=== PATIENT | female | born 1955 | race Caucasian/White ===

== ENCOUNTER 2017-03-17 13:52 | Outpatient (CLI) | payer OTHER ==
[2017-03-18] MEDS ORDERED: CAR30 PO (12:07)
[2017-03-18] MEDS ORDERED: GLU500 PO (12:07)
[2017-03-18] MEDS ORDERED: FURO-149 PO (12:07)
[2017-03-18] MEDS ORDERED: BUDE6HFA INH (12:07)
[2017-03-18] MEDS ORDERED: METO25TA3 PO (12:07)
[2017-03-18] MEDS ORDERED: POTA8TAB4 PO (12:07)
[2017-03-18] MEDS ORDERED: BENZ1KIT27 TP (12:07)
[2017-03-18] MEDS ORDERED: PARO-41 PO (12:07)
[2017-03-18] MEDS ORDERED: FLUT1DIS5 INH (12:07)
[2017-03-18] MEDS ORDERED: PRAV40TA PO (12:07)
[2017-03-18] MEDS ORDERED: CLOP75TA2 PO (12:07)
== END 2017-03-17 18:57 | disposition home or self-care (01) ==
LOC: SRD 13:52
PROVIDERS: ATTEND Internal Medicine
DX: I51.7 Cardiomegaly (principal); I25.10 Atherosclerotic heart disease of native coronary artery without angina pectoris; I48.91 Unspecified atrial fibrillation; G47.30 Sleep apnea, unspecified
CPT/HCPCS: 71020-TC

== ENCOUNTER 2017-03-18 11:44 | Inpatient (IN) | payer OTHER ==
[~2017-03-18] VITALS: Ht 154.9 cm; Wt 101.3 kg
[2017-03-18 11:44] VITALS: BP_SYST 119
[2017-03-18] MEDS ORDERED: BENZ1KIT27 TP (12:07)
[2017-03-18] MEDS ORDERED: CLOP75TA2 PO (12:07)
[2017-03-18] MEDS ORDERED: PARO-41 PO (12:07)
[2017-03-18] MEDS ORDERED: GLU500 PO (12:07)
[2017-03-18] MEDS ORDERED: POTA8TAB4 PO (12:07)
[2017-03-18] MEDS ORDERED: FURO-149 PO (12:07)
[2017-03-18] MEDS ORDERED: PRAV40TA PO (12:07)
[2017-03-18] MEDS ORDERED: BUDE6HFA INH (12:07)
[2017-03-18] MEDS ORDERED: FLUT1DIS5 INH (12:07)
[2017-03-18] MEDS ORDERED: CAR30 PO (12:07)
[2017-03-18] MEDS ORDERED: METO25TA3 PO (12:07)
[2017-03-18] MEDS ORDERED: NITROGLYCERIN 1 INCH (GM) OINT. TP ONE (12:15)
[2017-03-18 12:31] LABS: HEMATOCRIT 47.2 % (36-48); HEMOGLOBIN 15.3 g/dL (12.0-16.0); MEAN CORPUSCULAR HEMOGLOBIN 28 pg (27-31); MEAN CORPUSCULAR HGB CONC 32 % (32-36); MEAN CORPUSCULAR VOLUME 87 fL (79.0-98.0); PLATELET COUNT (AUTO) 322 K/uL (130-430); RED CELL DISTRIBUTION WIDTH 13.3 % (9.0-15.0); WHITE BLOOD COUNT (AUTO) 9.8 K/uL (4.8-10.8)
[2017-03-18 12:35] LABS: BILIRUBIN,URINE NEGATIVE (NEGATIVE); BLOOD, URINE TRACE (NEGATIVE); CLARITY/URINE CLEAR (CLEAR); COLOR,URINE YELLOW (YELLOW); GLUCOSE,URINE NEGATIVE (NEGATIVE); KETONES,URINE NEGATIVE (NEGATIVE); LEUKOCYTE ESTERASE ,URINE 1+ (NEGATIVE); NITRITE, URINE NEGATIVE (NEGATIVE); PH,URINE 5.5 (5.0-8.0); PROTEIN URINE 1+ (NEGATIVE); UROBILINOGEN,URINE 0.2 (0.2-1.0)
[2017-03-18 12:36] LABS: CALCIUM 8.4 mg/dL (8.4-11.0); CREATININE 0.81 mg/dL (0.55-1.30); POTASSIUM 3.6 mmol/L (3.5-5.1)
[2017-03-18 12:40] LABS: BACTERIA,URINE FEW /HPF (None Seen); MUCUS,URINE 1+ /LPF (None Seen)
[2017-03-18 12:41] LABS: ALBUMIN 3.7 g/dL (3.4-4.8); TOTAL BILIRUBIN 0.6 mg/dL (0.0-1.0)
[2017-03-18 12:45] LABS: INR 1.1 (0.8-1.2)
[2017-03-18 12:48] LABS: BASOPHILS % (MANUAL) 0 % (0-2); EOSINOPHILS % (MANUAL) 0 % (0-7); LYMPHOCYTES % (MANUAL) 14 % (20-46); MONOCYTES % (MANUAL) 12 % (0-11)
[2017-03-18] MEDS ORDERED: DIGOXIN 0.5 MG/2 ML AMP IVP ONE (13:00)
[2017-03-18] MEDS ORDERED: HEPARIN SODIUM,PORCINE 5000 UNITS/ML VIAL IVP ONE (14:00)
[2017-03-18] MEDS ORDERED: PIPERACILLIN/TAZO 3.375 GM in NS 50 ML IV ONE (14:00)
[2017-03-18] MEDS ORDERED: DILTIAZEM HCL 25 MG/5 ML VIAL IVP ONE (14:00)
[2017-03-18] MEDS ORDERED: PIPERACILLIN/TAZOBACTAM 3.375 GM/VIAL (ZOSYN) IV ONE (14:11)
[2017-03-18 15:11] VITALS: BP_SYST 150
[2017-03-18 16:52] VITALS: BP_SYST 150
[2017-03-18] MEDS ORDERED: ALBUTEROL SULFATE 0.083% 2.5 MG/3 ML VIAL.NEB INH PRN (18:45)
[2017-03-18] MEDS ORDERED: IPRATROPIUM BROM 0.5 MG/2.5 ML VIAL.NEB (ATROVENT) INH PRN (18:45)
[2017-03-18] MEDS ORDERED: DEXTROSE 50% JECT 50 ML DISP.SYRIN IVP PRN (18:45)
[2017-03-18] MEDS ORDERED: MORPHINE 4 MG/ML INJ. SYRINGE IVP PRN (19:00)
[2017-03-18] MEDS ORDERED: MORPHINE 2 MG/ML INJ. SYRINGE IVP PRN (19:00)
[2017-03-18] MEDS ORDERED: ONDANSETRON HCL 4 MG/2 ML VIAL IVP PRN (19:00)
[2017-03-18] MEDS: PIPERACILLIN/TAZOBACTAM 3.375 GM/ D5W 50 ML IV SCH ×2 (19:18)
[2017-03-18] MEDS: D5NS 1,000 ML IV SCH (19:19)
[2017-03-18] MEDS: METOPROLOL TARTRATE 50 MG TABLET PO SCH (19:20)
[2017-03-18 20:00] VITALS: BP_SYST 145; BP_SYST 150
[2017-03-18] MEDS: FLUTICASONE 500 mCg/SALMETEROL 50 mCg DISKUS W.DEV INH SCH (21:00)
[2017-03-18] MEDS ORDERED: METOPROLOL TARTRATE 25 MG TABLET PO SCH (21:00)
[2017-03-18] MEDS: IPRATROPIUM BROM 0.5 MG/2.5 ML VIAL.NEB (ATROVENT) INH SCH (21:22)
[2017-03-18] MEDS: ALBUTEROL SULFATE 0.083% 2.5 MG/3 ML VIAL.NEB INH SCH (21:22)
[2017-03-18] MEDS: APIXABAN 2.5 MG TABLET PO SCH (22:40)
[2017-03-18] MEDS: ATORVASTATIN 20 MG TABLET PO SCH (22:40)
[2017-03-18] MEDS: DILTIAZEM HCL 30 MG TABLET PO SCH (22:40)
[2017-03-18] MEDS: POTASSIUM CHLORIDE 8 MEQ TABLET.SA PO SCH (22:40)
[2017-03-19 00:30] VITALS: BP_SYST 163
[2017-03-19] MEDS: INSULIN REGULAR, HUMAN 100 UNITS/ML, 10 ML VIAL (novoLIN R) SUBCUT PRN ×2 (00:46→12:14)
[2017-03-19] MEDS: PIPERACILLIN/TAZOBACTAM 3.375 GM/ D5W 50 ML IV SCH ×8 (00:46→17:25)
[2017-03-19 04:00] VITALS: BP_SYST 145
[2017-03-19] MEDS: ALBUTEROL SULFATE 0.083% 2.5 MG/3 ML VIAL.NEB INH SCH ×5 (07:35→23:00)
[2017-03-19] MEDS: IPRATROPIUM BROM 0.5 MG/2.5 ML VIAL.NEB (ATROVENT) INH SCH ×5 (07:35→23:00)
[2017-03-19 08:30] VITALS: BP_SYST 128
[2017-03-19] MEDS ORDERED: PRAVASTATIN SODIUM 20 MG TABLET (PRAVACHOL) PO SCH (09:00)
[2017-03-19] MEDS: PARoxetine HCL 20 MG TABLET PO SCH ×2 (09:00→09:51)
[2017-03-19] MEDS: FLUTICASONE 500 mCg/SALMETEROL 50 mCg DISKUS W.DEV INH SCH ×2 (09:00→20:18)
[2017-03-19] MEDS: FUROSEMIDE 40 MG TABLET PO SCH (09:51)
[2017-03-19] MEDS: METOPROLOL TARTRATE 50 MG TABLET PO SCH ×2 (09:52→20:17)
[2017-03-19] MEDS: POTASSIUM CHLORIDE 8 MEQ TABLET.SA PO SCH ×3 (09:52→20:18)
[2017-03-19] MEDS: APIXABAN 2.5 MG TABLET PO SCH ×2 (09:52→20:10)
[2017-03-19] MEDS: DILTIAZEM HCL 30 MG TABLET PO SCH ×2 (09:53→20:17)
[2017-03-19 11:22] VITALS: BP_SYST 111
[2017-03-19] MEDS: D5NS 1,000 ML IV SCH (12:37)
[2017-03-19 15:27] VITALS: BP_SYST 130
[2017-03-19 20:00] VITALS: BP_SYST 145
[2017-03-19] MEDS: ATORVASTATIN 20 MG TABLET PO SCH (20:10)
[2017-03-19] MEDS: ACETAMINOPHEN 325 MG TABLET PO PRN (20:18)
[2017-03-20] VITALS (8 sets, daily range): BP systolic 112–186
[2017-03-20] MEDS: PIPERACILLIN/TAZOBACTAM 3.375 GM/ D5W 50 ML IV SCH ×8 (00:26→17:06)
[2017-03-20] MEDS: ALBUTEROL SULFATE 0.083% 2.5 MG/3 ML VIAL.NEB INH SCH ×4 (03:00→15:00)
[2017-03-20] MEDS: IPRATROPIUM BROM 0.5 MG/2.5 ML VIAL.NEB (ATROVENT) INH SCH ×4 (03:00→15:00)
[2017-03-20] MEDS: D5NS 1,000 ML IV SCH (05:35)
[2017-03-20] MEDS: ACETAMINOPHEN 325 MG TABLET PO PRN (05:37)
[2017-03-20 07:20] LABS: BASOPHILS # (AUTO) 0.1 K/uL (0.0-0.2); BASOPHILS % (AUTO) 0.5 % (0.0-2.0); EOSINOPHILS # (AUTO) 0.2 K/uL (0.0-0.4); EOSINOPHILS % (AUTO) 1.9 % (0.0-4.0); HEMATOCRIT 44.8 % (36-48); HEMOGLOBIN 14.9 g/dL (12.0-16.0); LYMPHOCYTES # (AUTO) 2.3 K/uL (1.0-5.5); LYMPHOCYTES % (AUTO) 21.6 % (20.5-51.5); MEAN CORPUSCULAR HEMOGLOBIN 29 pg (27-31); MEAN CORPUSCULAR HGB CONC 33 % (32-36); MEAN CORPUSCULAR VOLUME 87 fL (79.0-98.0); MONOCYTES # (AUTO) 0.7 K/uL (0.0-1.0); MONOCYTES % (AUTO) 6.6 % (1.7-9.3); NEUTROPHILS # (AUTO) 7.3 K/uL (1.8-7.7); NEUTROPHILS % (AUTO) 69.4 % (40.0-70.0); PLATELET COUNT (AUTO) 332 K/uL (130-430); RED BLOOD CELL COUNT(AUTO) 5.17 MIL/uL (4.2-6.2); RED CELL DISTRIBUTION WIDTH 13.4 % (9.0-15.0); WHITE BLOOD COUNT (AUTO) 10.6 K/uL (4.8-10.8)
[2017-03-20 07:39] LABS: CALCIUM 8.9 mg/dL (8.4-11.0); CREATININE 0.8 mg/dL (0.55-1.30); POTASSIUM 3.5 mmol/L (3.5-5.1)
[2017-03-20 08:02] LABS: ALBUMIN 3.6 g/dL (3.4-4.8); THYROID STIMULATING HORMONE 3.45 uIu/mL (0.36-3.74); TOTAL BILIRUBIN 0.7 mg/dL (0.0-1.0)
[2017-03-20] MEDS: APIXABAN 2.5 MG TABLET PO SCH (08:32)
[2017-03-20] MEDS: DILTIAZEM HCL 30 MG TABLET PO SCH (08:32)
[2017-03-20] MEDS: POTASSIUM CHLORIDE 8 MEQ TABLET.SA PO SCH ×2 (08:32→15:08)
[2017-03-20] MEDS: FUROSEMIDE 40 MG TABLET PO SCH (08:33)
[2017-03-20] MEDS: PARoxetine HCL 20 MG TABLET PO SCH (08:33)
[2017-03-20] MEDS: METOPROLOL TARTRATE 50 MG TABLET PO SCH (08:33)
[2017-03-20] MEDS: FLUTICASONE 500 mCg/SALMETEROL 50 mCg DISKUS W.DEV INH SCH (09:00)
[2017-03-20] MEDS: INSULIN REGULAR, HUMAN 100 UNITS/ML, 10 ML VIAL (novoLIN R) SUBCUT PRN (12:07)
== END 2017-03-20 19:00 | disposition home or self-care (01) | DRG 309 ==
LOC: SED 11:44 → STU 14:24
PROVIDERS: ADMIT Internal Medicine Hospice and Palliative Medicine; ATTEND Internal Medicine Hospice and Palliative Medicine
DX: I48.91 Unspecified atrial fibrillation (principal); Z68.41 Body mass index [BMI] 40.0-44.9, adult; I11.0 Hypertensive heart disease with heart failure; I50.9 Heart failure, unspecified; K43.2 Incisional hernia without obstruction or gangrene; R51 Headache; E11.9 Type 2 diabetes mellitus without complications; E66.9 Obesity, unspecified; K80.20 Calculus of gallbladder without cholecystitis without obstruction; J45.909 Unspecified asthma, uncomplicated; E78.00 Pure hypercholesterolemia, unspecified; K43.9 Ventral hernia without obstruction or gangrene; Z82.49 Family history of ischemic heart disease and other diseases of the circulatory system; Z79.01 Long term (current) use of anticoagulants; Z88.6 Allergy status to analgesic agent; Z86.73 Personal history of transient ischemic attack (TIA), and cerebral infarction without residual deficits; Z79.84 Long term (current) use of oral hypoglycemic drugs; Z79.899 Other long term (current) drug therapy
CPT/HCPCS: 36415; 70450-TC; 71010; 80053; 81000-TC; 82962; 83605; 83690-TC; 83880; 84443-TC; 84484; 85007; 85025; 85027; 85610-TC; 87040-TC; 87086; 93005; 93306; 94640; 94760; 96365; 96375; 99285; J1160; J1644; J2543; J3490; J7042; J7060

== ENCOUNTER 2017-12-22 14:18 | Emergency (ER) | payer OTHER, MEDICAID ==
[~2017-12-22] VITALS: Ht 157.5 cm; Wt 99.8 kg
[~2017-12-22 14:18] MED LIST: APIX5TAB PO; CARV12.548 PO; CLOP75TA2 PO; FLUT1DIS5 INH; FURO-149 PO; LEVO75TA7 PO; LOSA100T3 PO; POTA8TAB4 PO; PRO40 PO; ROSU20TA PO
[2017-12-22 14:24] VITALS: BP_SYST 164
[2017-12-22] MEDS ORDERED: KETOROLAC TROMETHAMINE 60 MG/2 ML VIAL IM ONE (15:00)
[2017-12-22 16:38] VITALS: BP_SYST 153
== END 2017-12-22 16:38 | disposition home or self-care (01) ==
LOC: SED 14:18
DX: S20.212A Contusion of left front wall of thorax, initial encounter (principal); I48.91 Unspecified atrial fibrillation; E11.9 Type 2 diabetes mellitus without complications; I10 Essential (primary) hypertension; Z88.1 Allergy status to other antibiotic agents; Z79.899 Other long term (current) drug therapy; W18.30XA Fall on same level, unspecified, initial encounter; Y93.E9 Activity, other interior property and clothing maintenance; Y92.89 Other specified places as the place of occurrence of the external cause; Y99.8 Other external cause status
CPT/HCPCS: 71250; 96372; 99284; J1885

== ENCOUNTER 2018-03-20 08:30 | Outpatient (CLI) | payer OTHER, MEDICAID | END 2018-03-20 19:48 | disposition home or self-care (01) | LOC: SUS 08:30 | PROVIDERS: ATTEND Internal Medicine | DX: R16.0 Hepatomegaly, not elsewhere classified (principal); Z87.442 Personal history of urinary calculi | CPT/HCPCS: 76700-TC ==

== ENCOUNTER 2018-07-30 20:35 | Emergency (ER) | payer OTHER, MEDICAID ==
[~2018-07-30] VITALS: Ht 157.5 cm; Wt 99.8 kg
[2018-07-30 21:20] VITALS: BP_SYST 140
[2018-07-30 22:55] VITALS: BP_SYST 140
== END 2018-07-30 22:55 | disposition home or self-care (01) ==
LOC: SED 20:35
DX: S80.02XA Contusion of left knee, initial encounter (principal); I48.91 Unspecified atrial fibrillation; I11.0 Hypertensive heart disease with heart failure; I50.9 Heart failure, unspecified; E11.9 Type 2 diabetes mellitus without complications; Z86.73 Personal history of transient ischemic attack (TIA), and cerebral infarction without residual deficits; Z88.6 Allergy status to analgesic agent; Z88.8 Allergy status to other drugs, medicaments and biological substances; Z79.899 Other long term (current) drug therapy; W10.9XXA Fall (on) (from) unspecified stairs and steps, initial encounter; Y93.01 Activity, walking, marching and hiking; Y92.89 Other specified places as the place of occurrence of the external cause; Y99.8 Other external cause status
CPT/HCPCS: 73564; 99283

== ENCOUNTER 2018-07-31 22:41 | Emergency (ER) | payer OTHER, MEDICAID ==
[~2018-07-31] VITALS: Ht 157.5 cm; Wt 99.8 kg
[2018-07-31 22:45] VITALS: BP_SYST 150
[2018-08-01] MEDS ORDERED: ACETAMINOPHEN/CODEINE 300 MG-30 MG TABLET PO ONE (01:45)
[2018-08-01 02:45] VITALS: BP_SYST 141
== END 2018-08-01 02:45 | disposition home or self-care (01) ==
LOC: SED 22:41
DX: S80.02XA Contusion of left knee, initial encounter (principal); J45.909 Unspecified asthma, uncomplicated; I48.91 Unspecified atrial fibrillation; E11.9 Type 2 diabetes mellitus without complications; I11.0 Hypertensive heart disease with heart failure; I50.9 Heart failure, unspecified; Z90.49 Acquired absence of other specified parts of digestive tract; Z86.73 Personal history of transient ischemic attack (TIA), and cerebral infarction without residual deficits; Z88.6 Allergy status to analgesic agent; Z88.8 Allergy status to other drugs, medicaments and biological substances; Z79.899 Other long term (current) drug therapy; W19.XXXA Unspecified fall, initial encounter; Y93.89 Activity, other specified; Y92.89 Other specified places as the place of occurrence of the external cause; Y99.8 Other external cause status
CPT/HCPCS: 93971; 99284

== ENCOUNTER 2018-08-11 12:47 | Outpatient (CLI) | payer OTHER, MEDICAID | END 2018-08-11 21:17 | disposition home or self-care (01) | LOC: SRD 12:47 | PROVIDERS: ATTEND Internal Medicine | DX: M79.672 Pain in left foot (principal); M25.562 Pain in left knee | CPT/HCPCS: 73564 ==

== ENCOUNTER 2018-08-21 13:31 | Emergency (ER) | payer OTHER, MEDICAID ==
[~2018-08-21] VITALS: Ht 165.1 cm; Wt 99.8 kg
--- NOTE | 2018-08-21 13:33 | NUR ---
Arrived via [facility]. Placed in room 7 . Placed on electronic device monitor, blood pressure machine and pulse oximeter. To gown for exam. Side rails up. Report given to Aliyah UP.
--- NOTE | 2018-08-21 13:35 | NUR ---
ER Dr. BROOKS at bedside examining patient.
--- NOTE | 2018-08-21 13:38 | NUR ---
PATIENT CAME IN FROM DR APPOINTMENT. PATIENT COMPLAINING OF CHEST PAIN RADIATING TO LEFT ARM AND NUMBNESS IN ARM SINCE TUESDAY. PAIN 08/09. PATIENT SOB. PATIENT ALERT AND ORIENTED X4. PATIENT NOT COMPLAINING OF NAUSEA OR VOMITING.
[2018-08-21 13:42] VITALS: BP_SYST 138
[2018-08-21] MEDS ORDERED: NACL 0.9% 1,000 ML IV ONE (13:48)
[2018-08-21] MEDS ORDERED: MORPHINE 4 MG/ML INJ. SYRINGE IVP ONE (14:00)
[2018-08-21 14:15] LABS: BASOPHILS # (AUTO) 0.1 K/uL (0.0-0.2); EOSINOPHILS # (AUTO) 0.1 K/uL (0.0-0.4); HEMATOCRIT 38.3 % (36-48); LYMPHOCYTES # (AUTO) 1.3 K/uL (1.0-5.5); LYMPHOCYTES % (AUTO) 15.4 % (20.5-51.5); MEAN CORPUSCULAR HEMOGLOBIN 30 pg (27-31); MEAN CORPUSCULAR HGB CONC 34 % (32-36); MEAN CORPUSCULAR VOLUME 89 fL (79.0-98.0); MONOCYTES # (AUTO) 0.6 K/uL (0.0-1.0); MONOCYTES % (AUTO) 7.2 % (1.7-9.3); NEUTROPHILS # (AUTO) 6.4 K/uL (1.8-7.7); NEUTROPHILS % (AUTO) 75.4 % (40.0-70.0); PLATELET COUNT (AUTO) 338 K/uL (130-430); RED BLOOD CELL COUNT(AUTO) 4.29 MIL/uL (4.2-6.2); RED CELL DISTRIBUTION WIDTH 14.1 % (9.0-15.0); WHITE BLOOD COUNT (AUTO) 8.5 K/uL (4.8-10.8)
--- NOTE | 2018-08-21 14:24 | NUR ---
PATIENT REFUSED MORPHINE AT THE MOMENT. PATIENT SAID SHE DIDNT WANT IT UNLESS SHE IS ADMITED. PATIENT ASKED FOR URINE BUT SAID SHE DOESNT HAVE TO GO.
[2018-08-21 14:36] LABS: CALCIUM 9.7 mg/dL (8.4-11.0); CREATININE 0.96 mg/dL (0.55-1.30); POTASSIUM 4.2 mmol/L (3.5-5.1)
[2018-08-21 14:41] LABS: INR 1.1 (0.8-1.2); PROTHROMBIN TIME 10.8 SECS (9.5-12.5)
[2018-08-21 14:42] LABS: ALBUMIN 3.5 g/dL (3.4-4.8); TOTAL BILIRUBIN 0.4 mg/dL (0.0-1.0)
[2018-08-21 14:54] LABS: BLOOD, URINE NEGATIVE (NEGATIVE); CLARITY/URINE SL CLOUDY (CLEAR); COLOR,URINE AMBER (YELLOW); GLUCOSE,URINE NEGATIVE (NEGATIVE); KETONES,URINE 1+ (NEGATIVE); LEUKOCYTE ESTERASE ,URINE 1+ (NEGATIVE); NITRITE, URINE NEGATIVE (NEGATIVE); PH,URINE 5.5 (5.0-8.0); PROTEIN URINE 2+ (NEGATIVE)
[2018-08-21 15:02] LABS: BILIRUBIN,URINE 1+ (NEGATIVE)
[2018-08-21 15:13] LABS: BACTERIA,URINE MODERATE /HPF (None Seen); MUCUS,URINE 1+ /LPF (None Seen); RBC,URINE 0-3 /HPF (0-3)
[2018-08-21 15:15] LABS: FINE GRANULAR CASTS,URINE 0-10 /LPF (None Seen)
--- NOTE | 2018-08-21 16:58 | NUR ---
Patient given written and verbal discharge instructions and verbalizes understanding. ER MD discussed with patient the results and treatment provided. Patient in stable condition. ID arm band removed. IV catheter removed intact and dressing applied, no active bleeding. Rx of KEFLEX given. Patient educated on pain management and to follow up with PMD. Pain Scale 3/10 TOLERABLE. Opportunity for questions provided and answered. Medication side effect fact sheet provided.
[2018-08-21 17:00] VITALS: BP_SYST 136
== END 2018-08-21 16:58 | disposition home or self-care (01) ==
LOC: SED 13:31
DX: R07.89 Other chest pain (principal); M54.2 Cervicalgia; N39.0 Urinary tract infection, site not specified; I48.91 Unspecified atrial fibrillation; E11.9 Type 2 diabetes mellitus without complications; I11.0 Hypertensive heart disease with heart failure; I50.9 Heart failure, unspecified; Z87.39 Personal history of other diseases of the musculoskeletal system and connective tissue; Z90.49 Acquired absence of other specified parts of digestive tract; Z98.51 Tubal ligation status; Z88.6 Allergy status to analgesic agent; Z88.8 Allergy status to other drugs, medicaments and biological substances; Z79.899 Other long term (current) drug therapy
CPT/HCPCS: 36415; 71045; 80053; 81000; 82150; 82550; 83605; 83690; 83880; 84484; 85025; 85610; 85730; 87040; 87086; 87186; 93005; 99284; J7030; J2270

== ENCOUNTER 2018-12-07 13:59 | Outpatient (CLI) | payer OTHER, MEDICAID | END 2018-12-07 21:09 | disposition home or self-care (01) | LOC: SUS 13:59 | PROVIDERS: ATTEND Internal Medicine | DX: I82.4Z1 Acute embolism and thrombosis of unspecified deep veins of right distal lower extremity (principal) | CPT/HCPCS: 93971 ==

== ENCOUNTER 2019-01-10 12:27 | Inpatient (IN) | payer OTHER, MEDICAID ==
[~2019-01-10] VITALS: Ht 157.5 cm; Wt 99.8 kg
[2019-01-10 12:27] VITALS: BP_SYST 155
--- NOTE | 2019-01-10 12:27 | NUR ---
BROUGHT IN BY [facility], PLACED IN BED #4 AND TRIAGED. REPORT GIVEN TO JIMMY
--- NOTE | 2019-01-10 12:35 | NUR ---
ER Dr. AVILA at bedside examining patient.
--- NOTE | 2019-01-10 12:40 | NUR ---
PATIENT CAME IN COMPLAINING OF "A FIB" THAT STARTED THIS MORNING WELL PALPITATIONS. PATIENT STATES HER BP WAS "190/30." PATIENT COMPLAINING OF JAW PAIN AND HEADACHE. PATIENT COMPLAINING OF RIGHT ARM TINGLINING THAT RADIATED TO FOOT. PATIENT STATES SHE IS STILL ON PERIOD AND HAS IRREGULAR PERIOD AND USUALLY GETS LIKE THIS AROUND HER PERIOD. PATIENT STATES SHE FINISHED YESTERDAY. PATIENT COMPLAINING OF SOB AND NAUSEA BUT DENIES VOMITING. PATIENT ALERT AND ORIENTED X4.
--- NOTE | 2019-01-10 12:50 | NUR ---
PATIENT LEAVING NOW TO RADIOLOGY VIA GURNEY IN STABLE CONDITION.
--- NOTE | 2019-01-10 13:16 | NUR ---
PATIENT BACK FROM RADIOLOGY IN STABLE CONDITION.
[2019-01-10 13:34] LABS: BILIRUBIN,URINE NEGATIVE (NEGATIVE); CLARITY/URINE CLEAR (CLEAR); COLOR,URINE YELLOW (YELLOW); GLUCOSE,URINE 2+ (NEGATIVE); KETONES,URINE NEGATIVE (NEGATIVE); LEUKOCYTE ESTERASE ,URINE TRACE (NEGATIVE); NITRITE, URINE NEGATIVE (NEGATIVE); PH,URINE 7.5 (5.0-8.0); PROTEIN URINE 1+ (NEGATIVE); UROBILINOGEN,URINE 0.2 (0.2-1.0)
[2019-01-10 13:36] LABS: BLOOD, URINE TRACE (NEGATIVE)
[2019-01-10 13:40] LABS: BASOPHILS # (AUTO) 0.1 K/uL (0.0-0.2); BASOPHILS % (AUTO) 0.9 % (0.0-2.0); EOSINOPHILS # (AUTO) 0.1 K/uL (0.0-0.4); EOSINOPHILS % (AUTO) 1.1 % (0.0-4.0); HEMATOCRIT 44.7 % (36-48); HEMOGLOBIN 15.1 g/dL (12.0-16.0); LYMPHOCYTES # (AUTO) 1.5 K/uL (1.0-5.5); LYMPHOCYTES % (AUTO) 19.3 % (20.5-51.5); MEAN CORPUSCULAR HEMOGLOBIN 29 pg (27-31); MEAN CORPUSCULAR HGB CONC 34 % (32-36); MEAN CORPUSCULAR VOLUME 86 fL (79.0-98.0); MONOCYTES # (AUTO) 0.6 K/uL (0.0-1.0); MONOCYTES % (AUTO) 7.2 % (1.7-9.3); NEUTROPHILS # (AUTO) 5.7 K/uL (1.8-7.7); NEUTROPHILS % (AUTO) 71.5 % (40.0-70.0); PLATELET COUNT (AUTO) 297 K/uL (130-430); RED BLOOD CELL COUNT(AUTO) 5.18 MIL/uL (4.2-6.2); RED CELL DISTRIBUTION WIDTH 14.4 % (9.0-15.0)
[2019-01-10] MEDS ORDERED: DILTIAZEM HCL 125 MG in D5W 100 ML IV ONE (13:45)
[2019-01-10] MEDS ORDERED: DILTIAZEM HCL 25 MG/5 ML VIAL IVP ONE (13:45)
[2019-01-10 13:46] LABS: BACTERIA,URINE FEW /HPF (None Seen); MUCUS,URINE 1+ /LPF (None Seen)
[2019-01-10 13:50] LABS: BARBITURATE, URINE NEGATIVE (NEG <=200); BENZODIAZEPINE, URINE NEGATIVE (NEG <=150); CANNABINOID, URINE NEGATIVE (NEG <=50); COCAINE, URINE NEGATIVE (NEG <=150); METHAMPHETAMINES SCREEN,URINE NEGATIVE (NEG <=500); OPIATE, URINE NEGATIVE (NEG <=100); PHENCYCLIDINE SCREEN,URINE NEGATIVE (NEG <=25); UR TRICYCLIC ANTIDEPRESSANTS NEGATIVE (NEG <=300); URINE AMPHETAMINE NEGATIVE (NEG <=500); URINE METHADONE NEGATIVE (NEG <=200); URINE OXYCODONE SCREEN NEGATIVE (NEG <=100); URINE PROPOXYPHENE SCREEN NEGATIVE (NEG <=300)
[2019-01-10 14:04] LABS: ANION GAP 9 (5-15); CALCIUM 8.6 mg/dL (8.4-11.0); CHLORIDE 106 mmol/L (98-107); CREATININE 0.78 mg/dL (0.55-1.30); GLUCOSE 247 mg/dL (70-99); POTASSIUM 3.7 mmol/L (3.5-5.1); SODIUM SERUM 144 mmol/L (136-145); UREA NITROGEN, BLOOD 8 mg/dL (8-21)
[2019-01-10 14:05] LABS: GFR AFRICAN AMERICAN 95 mL/min (>90)
[2019-01-10] MEDS ORDERED: DILTIAZEM HCL 125 MG/25 ML VIAL IV ONE (14:06)
[2019-01-10 14:14] LABS: ALANINE AMINOTRANSFERASE 19 U/L (12-78); ALBUMIN 3.8 g/dL (3.4-4.8); ASPARTATE AMINOTRANSFERASE 16 U/L (10-37); TOTAL BILIRUBIN 0.4 mg/dL (0.0-1.0)
[2019-01-10 14:15] LABS: ALCOHOL, BLOOD < 3 mg/dL (<10)
[2019-01-10 14:17] LABS: INR 1.1 (0.8-1.2); PROTHROMBIN TIME 10.6 SECS (9.5-12.5)
--- NOTE | 2019-01-10 14:25 | NUR ---
CARDIZEM DRIP STARTED. BP 145/86 HR 136. WILL CONTINUE TO MONITOR.
--- NOTE | 2019-01-10 14:26 | NUR ---
SPOKE TO PATIENT ABOUT END OF LIFE CARE. PATIENT STATES SHE IS FULL CODE.
--- NOTE | 2019-01-10 14:33 | NUR ---
PATIENT'S HR DROPPED TO 40'S BUT BACK TO 130'S. PATIENT ALSO COMPLAINING OF NECK PAIN WHEN HAPPENED. CARDIZEM STOPPED. DR AVILA AWARE AND SAID TO HOLD FOR NOW. NECK PAIN RESOLVED AFTER STOPPED.
--- NOTE | 2019-01-10 14:36 | NUR ---
Medication reconciliation completed with information provided by PATIENT. Any prior medication reconciliation on file was reviewed and corrected.
--- NOTE | 2019-01-10 14:38 | NUR ---
PATIENT'S HR 120 BP 129/74. DR AVILA SAID TO START DRIP AGAIN BUT SLOW DOWN TO 5MG/HR.
--- NOTE | 2019-01-10 14:48 | NUR ---
PATIENT TOLERATING CARDIZEM DRIP AT 5MG/HR. NO SIGNS OF DISTRESS. HR STILL JUMPING FROM 40'S TO 130'S. DR MARGARITA DAVISON.
[2019-01-10] MEDS ORDERED: cefTRIAXone 1 GM IVPB PREMIX 50 ML IV ONE (15:00)
--- NOTE | 2019-01-10 15:00 | NUR ---
Patient will be admitted to care of DR SHELDON. Admitted to TELE unit. Belongings list completed. Summary report printed. Report will be given at bedside.
--- NOTE | 2019-01-10 15:14 | NUR ---
# 20 gauge angiocath placed to RIGHT AC. Use of asceptic technique. Opsite placed over site. Blood return noted. Flushed with 10 cc of normal saline. No evidence of infiltration noted. Patient tolerated well.
--- NOTE | 2019-01-10 15:31 | NUR ---
TELE NOT WANTING TO ADMIT PATIENT BECAUSE OF CARDIZEM DRIP. WILL CLARIFIY WITH CHARGE AND MANAGER TRANSITION.
--- NOTE | 2019-01-10 16:58 | NUR ---
Transfer to TELE via [facility] protocol. Licensed nurse present. IV present no signs or symptoms of infiltration.
--- NOTE | 2019-01-10 17:06 | NUR ---
ADMISSION NOTE Received patient from ER via nina, received report from JIMMY UP. Patient admitted with diagnosis of Afib. Patient oriented to hospital routine, call light, toileting and safety-patient verbalized understanding.Put to telemetry,afib.On cardizem drip at 5mg/hour at left arm for Afib.
--- NOTE | 2019-01-10 17:10 | NUR ---
REPORT GIVEN TO KALYN UP ON TELE.
--- NOTE | 2019-01-10 17:10 | NUR ---
CONSULTATION PAGED REASON FOR CONSULTATION:A-FIB WAS CONSULT CALLED?Y PERSON WHO WAS NOTIFIED:JOE CONSULTING PHYSICIAN:FERMIN THOMPSON ORGANIC SEARCH LEAD SPECIALTY:CARDIO ORGANIC SEARCH LEAD PHONE NUMBER:[phone] ORDERING PHYSICIAN:KOMAL COLUNGA
[2019-01-10 17:14] VITALS: BP_SYST 167
[2019-01-10] MEDS ORDERED: DILTIAZEM HCL 125 MG in D5W 100 ML IV SCH (17:15)
[2019-01-10 18:01] VITALS: BP_SYST 167
--- NOTE | 2019-01-10 19:08 | NUR ---
END RN NOTES WILL ENDORSE PATIENT TO NEXT SHIFT CONT MEDS AND CARDIZEM DRIP OF 5 CC/HR , PER CHIEF PHARMACIST TO CONT CARDIZEM DRIP UNLESS ANY UNUSUAL OCCURRENCE TO CALL MD CHANCE AND HE WILL SEE THE PATIENT , NO CHEST PAIN SHE FEELS BETTER AND EXPLAINED PLAN OF CARE AND SAFETY ENSURED ,SHE IS BPR AND ON STEADY GAIT
--- NOTE | 2019-01-10 19:35 | NUR ---
ROUNDS PATIENT AWAKE, WATCHING TV, NOT IN DISTRESS, DENIES ANY PAIN AND DISCOMFORT AT THIS TIME. ASSESSMENT DONE AND DOCUMENTED. SEE FLOWSHEET. PATIENT ON CARDIZEM DRIP AT THIS TIME @ 5 ML/HR, INFUSING WELL. NEEDS ATTENDED TO. SAFETY AND FALL PRECAUTION MEASURES IN PLACED. BED IN LOW AND LOCKED POSITION. CALL LIGHT PLACED WITHIN REACH.
[2019-01-10 20:00] VITALS: BP_SYST 135
[2019-01-10] MEDS: APIXABAN 2.5 MG TABLET PO SCH (20:51)
[2019-01-10] MEDS: CARVEDILOL 6.25 MG TABLET (COREG) PO SCH (20:52)
--- NOTE | 2019-01-10 21:15 | NUR ---
MEDICATION DUE MEDICATIONS GIVEN SCHEDULED, TOLERATED WELL. WILL CONTINUE TO MONITOR.
--- NOTE | 2019-01-11 00:14 | NUR ---
PATIENT RESTING: Patient resting quietly. No acute distress noted. Vital signs within normal range.
[2019-01-11 00:46] VITALS: BP_SYST 137
--- NOTE | 2019-01-11 02:13 | NUR ---
ROUNDS PATIENT ASLEEP, RESPIRATIONS EVEN AND UNLABORED, NO SIGNS OF ANY PAIN AND DISCOMFORT NOTED. WILL CONTINUE TO MONITOR.
--- NOTE | 2019-01-11 04:02 | NUR ---
NOTES PATIENT AWAKE, ASSISTED HER TO THE BATHROOM, NO COMPLAINTS AT THIS TIME. WILL CONTINUE TO MONITOR.
--- NOTE | 2019-01-11 06:16 | NUR ---
ISAURA NOTES PATIENT AWAKE, VITALS STABLE, NO COMPLAINTS AT THIS TIME. ALL NEEDS ATTENDED TO. SAFETY AND FALL PRECAUTION MEASURES MAINTAINED. CALL LIGHT PLACED WITHIN REACH.
[2019-01-11 08:00] VITALS: BP_SYST 151
[2019-01-11] MEDS ORDERED: ACETAMINOPHEN 500 MG TABLET PO PRN (08:00)
--- NOTE | 2019-01-11 08:00 | NUR ---
initial notes rec patient awake alert at the edge of the bed eating breakfast. ivf infusing well on the l ac. no infilatration noted. bed to the lowest position and side rails up and locked. call light within reached and knows when to call for assistance. assisted to the br with min assists and lizzie well.
[2019-01-11] MEDS: CARVEDILOL 6.25 MG TABLET (COREG) PO SCH (08:17)
[2019-01-11] MEDS: APIXABAN 2.5 MG TABLET PO SCH (08:22)
[2019-01-11] MEDS ORDERED: FUROSEMIDE 40 MG TABLET PO SCH (09:00)
[2019-01-11] MEDS ORDERED: ROSUVASTATIN CALCIUM 5 MG/TAB (CRESTOR) PO SCH (09:00)
[2019-01-11] MEDS ORDERED: ATORVASTATIN 20 MG TABLET PO SCH (09:00)
[2019-01-11] MEDS ORDERED: DIATR MEGLU/DIATRIZ SOD 30 ML SOLUTION PO ONE (09:58)
--- NOTE | 2019-01-11 10:00 | NUR ---
rounds seen by dr christianson at bedside. no sob noted. call light within reached.
[2019-01-11 12:41] VITALS: BP_SYST 145
[2019-01-11] MEDS ORDERED: AMI200 PO (13:32)
--- NOTE | 2019-01-11 14:35 | NUR ---
Dietitian Recommendations * Recommend CCHO, cardiac, mechanical soft, finely chopped diet LP, RD Please refer to Nutrition Assessment for details. Addendum: 01/11/19 at [address] Amended: Links added.
[2019-01-11 15:01] VITALS: BP_SYST 145
== END 2019-01-11 16:25 | disposition home or self-care (01) | DRG 309 ==
LOC: SED 12:27 → STU 14:53
PROVIDERS: ADMIT Internal Medicine Hospice and Palliative Medicine; ATTEND Internal Medicine Hospice and Palliative Medicine
DX: I48.0 Paroxysmal atrial fibrillation (principal); Z68.41 Body mass index [BMI] 40.0-44.9, adult; E78.5 Hyperlipidemia, unspecified; I25.10 Atherosclerotic heart disease of native coronary artery without angina pectoris; E78.00 Pure hypercholesterolemia, unspecified; I11.0 Hypertensive heart disease with heart failure; I50.9 Heart failure, unspecified; E66.01 Morbid (severe) obesity due to excess calories; Z88.8 Allergy status to other drugs, medicaments and biological substances; Z88.6 Allergy status to analgesic agent; Z79.01 Long term (current) use of anticoagulants; Z79.02 Long term (current) use of antithrombotics/antiplatelets; Z82.49 Family history of ischemic heart disease and other diseases of the circulatory system; Z95.5 Presence of coronary angioplasty implant and graft; Z86.73 Personal history of transient ischemic attack (TIA), and cerebral infarction without residual deficits; Z98.51 Tubal ligation status; Z91.048 Other nonmedicinal substance allergy status
CPT/HCPCS: 36415; 70450-TC; 71045; 74018; 80053; 80307; 81000-TC; 82140-TC; 83605; 83880; 84439; 84484; 85025; 85610-TC; 87040-TC; 87086; 93005; 96365; 96366; 96367; 99285; G0378; G0482; J0696; J3490; J7060; Q9964

== ENCOUNTER 2019-01-25 17:49 | Emergency (ER) | payer OTHER, MEDICAID ==
[~2019-01-25] VITALS: Ht 157.5 cm; Wt 99.8 kg
[~2019-01-25 17:49] MED LIST changes: +AMI200 PO; -LEVO75TA7 PO; -PRO40 PO; -ROSU20TA PO; +ROSU20TA2 PO
[2019-01-25 17:55] VITALS: BP_SYST 149
[2019-01-25 18:39] LABS: BASOPHILS # (AUTO) 0.1 K/uL (0.0-0.2); BASOPHILS % (AUTO) 0.9 % (0.0-2.0); EOSINOPHILS # (AUTO) 0.1 K/uL (0.0-0.4); EOSINOPHILS % (AUTO) 1.3 % (0.0-4.0); HEMATOCRIT 39.7 % (36-48); HEMOGLOBIN 13.5 g/dL (12.0-16.0); LYMPHOCYTES # (AUTO) 2.2 K/uL (1.0-5.5); LYMPHOCYTES % (AUTO) 22.5 % (20.5-51.5); MEAN CORPUSCULAR HEMOGLOBIN 29 pg (27-31); MEAN CORPUSCULAR HGB CONC 34 % (32-36); MEAN CORPUSCULAR VOLUME 86 fL (79.0-98.0); MONOCYTES # (AUTO) 0.7 K/uL (0.0-1.0); MONOCYTES % (AUTO) 7.4 % (1.7-9.3); NEUTROPHILS # (AUTO) 6.5 K/uL (1.8-7.7); NEUTROPHILS % (AUTO) 67.9 % (40.0-70.0); PLATELET COUNT (AUTO) 287 K/uL (130-430); RED CELL DISTRIBUTION WIDTH 14.1 % (9.0-15.0); WHITE BLOOD COUNT (AUTO) 9.6 K/uL (4.8-10.8)
[2019-01-25 18:45] LABS: CALCIUM 9.2 mg/dL (8.4-11.0); CREATININE 0.82 mg/dL (0.55-1.30); POTASSIUM 3.9 mmol/L (3.5-5.1)
[2019-01-25 18:50] LABS: ALBUMIN 3.5 g/dL (3.4-4.8); TOTAL BILIRUBIN 0.3 mg/dL (0.0-1.0)
[2019-01-25 19:11] VITALS: BP_SYST 149
== END 2019-01-25 19:12 | disposition home or self-care (01) ==
LOC: SED 17:49
DX: I83.92 Asymptomatic varicose veins of left lower extremity (principal); I11.0 Hypertensive heart disease with heart failure; I50.9 Heart failure, unspecified; I48.91 Unspecified atrial fibrillation; E11.9 Type 2 diabetes mellitus without complications; J45.909 Unspecified asthma, uncomplicated; Z88.8 Allergy status to other drugs, medicaments and biological substances; Z88.6 Allergy status to analgesic agent; Z79.899 Other long term (current) drug therapy
CPT/HCPCS: 36415; 80053; 85025; 93971; 99284

== ENCOUNTER 2019-04-02 10:00 | Outpatient (CLI) | payer OTHER | END 2019-04-02 13:00 | disposition home or self-care (01) | LOC: SRD 10:00 → EDSTATUS 04-09 10:20 | PROVIDERS: ATTEND Colon & Rectal Surgery | DX: Z01.818 Encounter for other preprocedural examination (principal); R91.8 Other nonspecific abnormal finding of lung field; I51.7 Cardiomegaly; K43.2 Incisional hernia without obstruction or gangrene; Z79.01 Long term (current) use of anticoagulants; Z86.73 Personal history of transient ischemic attack (TIA), and cerebral infarction without residual deficits; Z79.899 Other long term (current) drug therapy; Z88.6 Allergy status to analgesic agent; Z88.8 Allergy status to other drugs, medicaments and biological substances | CPT/HCPCS: 71046-TC ==

== ENCOUNTER 2020-09-10 16:56 | Emergency (ER) | payer OTHER ==
[~2020-09-10] VITALS: Ht 157.5 cm; Wt 99.8 kg
[~2020-09-10 16:56] MED LIST changes: -AMI200 PO; +AMIO200T66 PO
--- NOTE | 2020-09-10 16:56 | NUR ---
Placed in room 08 . Placed on pick up truck driver, blood pressure machine and pulse oximeter. To gown for exam. Side rails up.
--- NOTE | 2020-09-10 16:58 | NUR ---
Pt brought by self, ambulatory , A&Ox4, pt presents to ER with facial dropping/numbess on L side of face, intact ROM, able to raise eyebrows, intact speech, steady gait, VSS, respirations even and unlabored, will cont to monitor.
--- NOTE | 2020-09-10 16:59 | NUR ---
Dr Llamas evaluating patient at bedside
[2020-09-10 17:01] VITALS: BP_SYST 153
[2020-09-10] MEDS ORDERED: NACL 0.9% 1,000 ML IV ONE (17:30)
[2020-09-10 17:45] LABS: BASOPHILS # (AUTO) 0.1 K/uL (0.0-0.2); EOSINOPHILS # (AUTO) 0.1 K/uL (0.0-0.4); HEMATOCRIT 42.3 % (36-48); HEMOGLOBIN 14.3 g/dL (12.0-16.0); LYMPHOCYTES % (AUTO) 23.3 % (20.5-51.5); MEAN CORPUSCULAR HEMOGLOBIN 30 pg (27-31); MEAN CORPUSCULAR HGB CONC 34 % (32-36); MEAN CORPUSCULAR VOLUME 88 fL (79.0-98.0); MONOCYTES # (AUTO) 0.6 K/uL (0.0-1.0); MONOCYTES % (AUTO) 6.9 % (1.7-9.3); NEUTROPHILS # (AUTO) 5.8 K/uL (1.8-7.7); NEUTROPHILS % (AUTO) 67.8 % (40.0-70.0); PLATELET COUNT (AUTO) 250 K/uL (130-430); RED BLOOD CELL COUNT(AUTO) 4.82 MIL/uL (4.2-6.2); RED CELL DISTRIBUTION WIDTH 13.9 % (9.0-15.0); WHITE BLOOD COUNT (AUTO) 8.5 K/uL (4.8-10.8)
--- NOTE | 2020-09-10 17:50 | NUR ---
Pt off the unit for CT
[2020-09-10 17:58] LABS: CALCIUM 8.6 mg/dL (8.4-11.0); CREATININE 0.8 mg/dL (0.55-1.30); POTASSIUM 4.4 mmol/L (3.5-5.1)
[2020-09-10] MEDS ORDERED: ACETAMINOPHEN 325 MG TABLET PO ONE (18:00)
[2020-09-10 18:04] LABS: PROTHROMBIN TIME 10.5 SECS (9.5-12.5)
[2020-09-10 18:05] LABS: ALBUMIN 3.6 g/dL (3.4-4.8); TOTAL BILIRUBIN 0.7 mg/dL (0.0-1.0)
--- NOTE | 2020-09-10 18:10 | NUR ---
Pt returned from CT on stable condition,
[2020-09-10 18:14] LABS: BILIRUBIN,URINE NEGATIVE (NEGATIVE); CLARITY/URINE CLEAR (CLEAR); COLOR,URINE YELLOW (YELLOW); GLUCOSE,URINE 2+ (NEGATIVE); KETONES,URINE NEGATIVE (NEGATIVE); LEUKOCYTE ESTERASE ,URINE TRACE (NEGATIVE); NITRITE, URINE NEGATIVE (NEGATIVE); PROTEIN URINE TRACE (NEGATIVE); UROBILINOGEN,URINE 0.2 (0.2-1.0)
[2020-09-10 18:20] LABS: BLOOD, URINE TRACE (NEGATIVE)
[2020-09-10 18:26] LABS: RBC,URINE 0-3 /HPF (0-3)
[2020-09-10 18:27] LABS: BACTERIA,URINE MANY /HPF (None Seen); MUCUS,URINE 3+ /LPF (None Seen); YEAST,URINE Many /HPF (None Seen)
--- NOTE | 2020-09-10 19:08 | NUR ---
Minh mari in [facility] - 09/10/20 at 1924 by [email or web address] Received report from JEOVANNY Moreno
--- NOTE | 2020-09-10 19:09 | NUR ---
Pt A&Ox4, VSS, respirations even and unlabored
[2020-09-10] MEDS ORDERED: VALA10002 PO (19:10)
[2020-09-10] MEDS ORDERED: PRED50TA PO (19:10)
[2020-09-10 19:21] VITALS: BP_SYST 141
--- NOTE | 2020-09-10 19:21 | NUR ---
Patient given written and verbal discharge instructions and verbalizes understanding. ER MD discussed with patient the results and treatment provided. Patient in stable condition. ID arm band removed. IV catheter removed intact and dressing applied, no active bleeding. Rx of Prednisone and Valtrex given. Patient educated on pain management and to follow up with PMD. Pain Scale 0/10. Opportunity for questions provided and answered. Medication side effect fact sheet provided.
== END 2020-09-10 19:21 | disposition home or self-care (01) ==
LOC: SED 16:56
DX: G51.0 Bell's palsy (principal); I10 Essential (primary) hypertension; E11.9 Type 2 diabetes mellitus without complications; I48.91 Unspecified atrial fibrillation; J45.909 Unspecified asthma, uncomplicated; Z88.6 Allergy status to analgesic agent; Z88.8 Allergy status to other drugs, medicaments and biological substances; Z79.899 Other long term (current) drug therapy
CPT/HCPCS: 36415; 70450; 71045; 76376; 80053; 81000; 84484; 85025; 85610; 85730; 87086; 93005; 96360; 99285; J7030

== ENCOUNTER 2021-01-29 10:07 | Emergency (ER) | payer OTHER, MEDICAID, SELFPAY ==
[~2021-01-29] VITALS: Ht 157.5 cm; Wt 99.8 kg
[~2021-01-29 10:07] MED LIST changes: -AMIO200T66 PO; +AMIO400T5 PO; +BUDE6.9H INH; +CITA10TA9 PO; -CLOP75TA2 PO; +FLUT1DIS5 IH; -FLUT1DIS5 INH; +NIFE-55 PO
[2021-01-29 10:16] VITALS: BP_SYST 172
[2021-01-29] MEDS ORDERED: cloNIDine HCL 0.1 MG TABLET PO ONE (10:45)
[2021-01-29 11:04] LABS: BASOPHILS # (AUTO) 0.1 K/uL (0.0-0.2); BASOPHILS % (AUTO) 0.8 % (0.0-2.0); EOSINOPHILS # (AUTO) 0.1 K/uL (0.0-0.4); HEMATOCRIT 37.3 % (36-48); HEMOGLOBIN 12.5 g/dL (12.0-16.0); LYMPHOCYTES # (AUTO) 1.2 K/uL (1.0-5.5); LYMPHOCYTES % (AUTO) 13.2 % (20.5-51.5); MEAN CORPUSCULAR HEMOGLOBIN 29 pg (27-31); MEAN CORPUSCULAR HGB CONC 34 % (32-36); MEAN CORPUSCULAR VOLUME 87 fL (79.0-98.0); MONOCYTES # (AUTO) 0.5 K/uL (0.0-1.0); MONOCYTES % (AUTO) 5.7 % (1.7-9.3); NEUTROPHILS # (AUTO) 7.2 K/uL (1.8-7.7); NEUTROPHILS % (AUTO) 79.3 % (40.0-70.0); PLATELET COUNT (AUTO) 258 K/uL (130-430); RED BLOOD CELL COUNT(AUTO) 4.31 MIL/uL (4.2-6.2)
[2021-01-29 11:21] LABS: CALCIUM 8.8 mg/dL (8.4-11.0); CREATININE 0.79 mg/dL (0.55-1.30); POTASSIUM 3.9 mmol/L (3.5-5.1)
[2021-01-29 11:24] LABS: ALBUMIN 3.5 g/dL (3.4-4.8); TOTAL BILIRUBIN 0.7 mg/dL (0.0-1.0)
[2021-01-29] MEDS ORDERED: NIFE-55 PO (12:30)
[2021-01-29] MEDS ORDERED: CARV12.548 PO (12:30)
[2021-01-29 12:47] VITALS: BP_SYST 152
== END 2021-01-29 12:40 | disposition home or self-care (01) ==
LOC: SED 10:07
DX: I16.0 Hypertensive urgency (principal); I48.91 Unspecified atrial fibrillation; E11.9 Type 2 diabetes mellitus without complications; J45.909 Unspecified asthma, uncomplicated; Z88.6 Allergy status to analgesic agent; Z88.8 Allergy status to other drugs, medicaments and biological substances; Z79.899 Other long term (current) drug therapy; Z20.822 Contact with and (suspected) exposure to COVID-19
CPT/HCPCS: 36415; 71045; 80053; 82962; 83880; 84484; 85025; 93005; 99285

== ENCOUNTER 2021-05-21 16:36 | Emergency (ER) | payer OTHER, MEDICAID, SELFPAY ==
[~2021-05-21] VITALS: Ht 157.5 cm; Wt 95.3 kg
[~2021-05-21 16:36] MED LIST changes: +CITA10TA14 PO; -CITA10TA9 PO; -POTA8TAB4 PO; +POTA8TAB66 PO
[2021-05-21 16:50] VITALS: BP_SYST 115
--- NOTE | 2021-05-21 16:50 | NUR ---
Pt. came in with family having multiple flu like symptoms, ROCHA, body aches, low grade fever, mild SOB and back pain X 5 days, pt. started coughing yesterday and now is concerned, pt. is not vaccinated for covid
--- NOTE | 2021-05-21 17:30 | NUR ---
ER in tent examining patient.
--- NOTE | 2021-05-21 18:18 | NUR ---
chest xray being done
[2021-05-21] MEDS ORDERED: PSEU120T57 PO (18:54)
[2021-05-21] MEDS ORDERED: GUAI-723 PO (18:54)
[2021-05-21 19:08] VITALS: BP_SYST 131
--- NOTE | 2021-05-21 19:09 | NUR ---
Patient given written and verbal discharge instructions and verbalizes understanding. ER MD discussed with patient the results and treatment provided. Patient in stable condition. ID arm band removed. Rx of guaifenesin and sudafed given. Patient educated on pain management and to follow up with PMD. Pain Scale 0. Opportunity for questions provided and answered. Medication side effect fact sheet provided.
== END 2021-05-21 19:09 | disposition home or self-care (01) ==
LOC: SED 16:36
DX: U07.1 COVID-19 (principal); J45.909 Unspecified asthma, uncomplicated; E11.9 Type 2 diabetes mellitus without complications; I10 Essential (primary) hypertension; Z88.2 Allergy status to sulfonamides; Z88.8 Allergy status to other drugs, medicaments and biological substances
CPT/HCPCS: 36415; 71045; 93005; 99285

== ENCOUNTER → 2023-01-14 | Emergency (ER) | payer OTHER, MEDICAID ==
[~2023-01-14] VITALS: Ht 157.5 cm; Wt 95.3 kg
[~2023-01-14] MED LIST changes: +GUAI-723 PO; +LOSA-415 PO; -LOSA100T3 PO; +PSEU120T57 PO
[2023-01-14 06:20] VITALS: BP_SYST 155; PULSE 59; RESP 17; TEMP 98.3; O2SAT 97
[2023-01-14 06:47] VITALS: BP_SYST 161; PULSE 56; RESP 18; TEMP 98.3; O2SAT 98
== END | disposition home or self-care (01) ==
LOC: SED 05:51
DX: I10 Essential (primary) hypertension (principal); J45.909 Unspecified asthma, uncomplicated; E11.9 Type 2 diabetes mellitus without complications; Z88.6 Allergy status to analgesic agent; Z88.8 Allergy status to other drugs, medicaments and biological substances; Z79.899 Other long term (current) drug therapy
CPT/HCPCS: 99281; J7030

== ENCOUNTER 2023-03-18 12:05 | Emergency (ER) | payer OTHER, MEDICAID ==
[~2023-03-18] VITALS: Ht 157.5 cm; Wt 95.3 kg
[2023-03-18 12:42] VITALS: BP_SYST 137; PULSE 62; RESP 18; TEMP 97; O2SAT 97
[2023-03-18 13:36] LABS: BASOPHILS # (AUTO) 0.1 K/uL (0.0-0.2); BASOPHILS % (AUTO) 0.8 % (0.0-2.0); EOSINOPHILS # (AUTO) 0.2 K/uL (0.0-0.4); EOSINOPHILS % (AUTO) 1.9 % (0.0-4.0); HEMATOCRIT 44.4 % (36-48); HEMOGLOBIN 14.4 g/dL (12.0-16.0); LYMPHOCYTES # (AUTO) 1.9 K/uL (1.0-5.5); LYMPHOCYTES % (AUTO) 22.3 % (20.5-51.5); MEAN CORPUSCULAR HEMOGLOBIN 29 pg (27-31); MEAN CORPUSCULAR HGB CONC 32 % (32-36); MEAN CORPUSCULAR VOLUME 89 fL (79.0-98.0); MONOCYTES # (AUTO) 0.7 K/uL (0.0-1.0); MONOCYTES % (AUTO) 8.1 % (1.7-9.3); NEUTROPHILS # (AUTO) 5.7 K/uL (1.8-7.7); NEUTROPHILS % (AUTO) 66.9 % (40.0-70.0); PLATELET COUNT (AUTO) 290 K/uL (130-430); RED BLOOD CELL COUNT(AUTO) 5.01 MIL/uL (4.2-6.2); RED CELL DISTRIBUTION WIDTH 14.8 % (9.0-15.0); WHITE BLOOD COUNT (AUTO) 8.5 K/uL (4.8-10.8)
[2023-03-18 13:43] LABS: ANION GAP 9 (5-15); CALCIUM 9.1 mg/dL (8.4-11.0); CARBON DIOXIDE 27 mmol/L (23-29); CHLORIDE 99 mmol/L (98-107); CREATININE 0.87 mg/dL (0.55-1.30); GFR AFRICAN AMERICAN 83 mL/min (>90); GLUCOSE 214 mg/dL (74-106); POTASSIUM 3.5 mmol/L (3.5-5.1); SODIUM SERUM 135 mmol/L (136-145); UREA NITROGEN, BLOOD 17 mg/dL (8-21)
[2023-03-18 13:44] LABS: GFR NON AFRICAN-AMERICAN 69 mL/min (>90)
[2023-03-18] MEDS ORDERED: MELO-89 PO (13:48)
[2023-03-18 13:51] LABS: ALANINE AMINOTRANSFERASE 17 U/L (12-78); ALBUMIN 3.5 g/dL (3.4-4.8); ASPARTATE AMINOTRANSFERASE 10 U/L (10-37); BILIRUBIN,DIRECT 0.1 mg/dL (0.0-0.3); TOTAL BILIRUBIN 0.3 mg/dL (0.0-1.0); TOTAL PROTEIN, SERUM 6.8 g/dL (6.4-8.3)
[2023-03-18] MEDS ORDERED: KETOROLAC TROMETHAMINE 30 MG VIAL IM ONE (14:00)
[2023-03-18 14:18] VITALS: BP_SYST 137; PULSE 62; RESP 18; TEMP 97; O2SAT 97
== END 2023-03-18 14:18 | disposition home or self-care (01) ==
LOC: SED 12:05
DX: S20.211A Contusion of right front wall of thorax, initial encounter (principal); J45.909 Unspecified asthma, uncomplicated; I10 Essential (primary) hypertension; E11.9 Type 2 diabetes mellitus without complications; Z88.6 Allergy status to analgesic agent; Z88.8 Allergy status to other drugs, medicaments and biological substances; Z79.899 Other long term (current) drug therapy; W29.2XXA Contact with other powered household machinery, initial encounter; Y93.89 Activity, other specified; Y92.89 Other specified places as the place of occurrence of the external cause; Y99.8 Other external cause status
CPT/HCPCS: 99284; 71045; 80076; 80048; 83880; 85025; 84484; 36415; 96372; J1885

== ENCOUNTER 2023-12-15 16:47 | Emergency (ER) | payer OTHER ==
[~2023-12-15] VITALS: Ht 157.5 cm; Wt 86.2 kg
[~2023-12-15 16:47] MED LIST changes: +AMIO200T68 PO; -AMIO400T5 PO; -BUDE6.9H INH; -CARV12.548 PO; -CITA10TA14 PO; +COR25 PO; +DAPA5TAB PO; +DIGO250T PO; +DILT180C66 PO; -FLUT1DIS5 IH; -GUAI-723 PO; -NIFE-55 PO; -PSEU120T57 PO; -ROSU20TA2 PO
[2023-12-15 16:53] VITALS: BP_SYST 148; PULSE 52; RESP 20; TEMP 98.3; O2SAT 96
[2023-12-15] MEDS: KETOROLAC TROMETHAMINE 30 MG VIAL IM ONE (18:11)
[2023-12-15] MEDS: MAGNESIUM CITRATE 300 ML ORAL SOLUTION PO ONE (20:32)
[2023-12-15 20:34] VITALS: BP_SYST 146; PULSE 64; RESP 18; TEMP 97.9; O2SAT 95
== END 2023-12-15 20:36 | disposition home or self-care (01) ==
LOC: SED 16:47
DX: K59.00 Constipation, unspecified (principal); M25.551 Pain in right hip; J45.909 Unspecified asthma, uncomplicated; E11.9 Type 2 diabetes mellitus without complications; I10 Essential (primary) hypertension; I48.91 Unspecified atrial fibrillation; Z88.6 Allergy status to analgesic agent; Z88.1 Allergy status to other antibiotic agents; Z79.899 Other long term (current) drug therapy; Z79.2 Long term (current) use of antibiotics
CPT/HCPCS: 99284; 72100; 73502; 96372; 72170; J1885

== ENCOUNTER 2024-01-04 08:50 | Emergency (ER) | payer OTHER ==
[~2024-01-04] VITALS: Ht 157.5 cm; Wt 81.6 kg
[2024-01-04 09:07] VITALS: BP_SYST 180; PULSE 58; RESP 16; TEMP 97.2; O2SAT 96
[2024-01-04 10:21] LABS: BASOPHILS # (AUTO) 0.1 K/uL (0.0-0.2); BASOPHILS % (AUTO) 0.7 % (0.0-2.0); EOSINOPHILS # (AUTO) 0.1 K/uL (0.0-0.4); EOSINOPHILS % (AUTO) 0.7 % (0.0-4.0); HEMATOCRIT 43.4 % (36-48); HEMOGLOBIN 14.7 g/dL (12.0-16.0); LYMPHOCYTES # (AUTO) 1.3 K/uL (1.0-5.5); LYMPHOCYTES % (AUTO) 13.6 % (20.5-51.5); MEAN CORPUSCULAR HEMOGLOBIN 30 pg (27-31); MEAN CORPUSCULAR HGB CONC 34 % (32-36); MEAN CORPUSCULAR VOLUME 89 fL (79.0-98.0); MONOCYTES # (AUTO) 0.7 K/uL (0.0-1.0); MONOCYTES % (AUTO) 6.8 % (1.7-9.3); NEUTROPHILS # (AUTO) 7.6 K/uL (1.8-7.7); NEUTROPHILS % (AUTO) 78.2 % (40.0-70.0); PLATELET COUNT (AUTO) 265 K/uL (130-430); RED BLOOD CELL COUNT(AUTO) 4.89 MIL/uL (4.2-6.2); RED CELL DISTRIBUTION WIDTH 14.7 % (9.0-15.0); WHITE BLOOD COUNT (AUTO) 9.7 K/uL (4.8-10.8)
[2024-01-04 10:23] LABS: ERYTHROCYTE SEDIMENTATION RATE 9 MM/HR (0-20)
[2024-01-04 10:42] LABS: PROTHROMBIN TIME 11.1 SECS (9.5-12.5)
[2024-01-04 11:10] LABS: CALCIUM 8.6 mg/dL (8.4-11.0); CREATININE 0.75 mg/dL (0.55-1.30); POTASSIUM 3.4 mmol/L (3.5-5.1)
[2024-01-04] MEDS ORDERED: HYDR-3927 PO (11:42)
[2024-01-04] MEDS ORDERED: IBUP-1969 PO (11:42)
[2024-01-04 11:55] VITALS: BP_SYST 173; PULSE 64; RESP 14; TEMP 98; O2SAT 96
== END 2024-01-04 11:55 | disposition home or self-care (01) ==
LOC: SED 08:50
DX: R51.9 Headache, unspecified (principal); I10 Essential (primary) hypertension; E11.9 Type 2 diabetes mellitus without complications; J45.909 Unspecified asthma, uncomplicated; I48.91 Unspecified atrial fibrillation; Z85.9 Personal history of malignant neoplasm, unspecified; Z90.710 Acquired absence of both cervix and uterus; Z90.89 Acquired absence of other organs; Z98.890 Other specified postprocedural states; Z88.6 Allergy status to analgesic agent; Z88.1 Allergy status to other antibiotic agents; Z79.899 Other long term (current) drug therapy; Z79.2 Long term (current) use of antibiotics
CPT/HCPCS: 36415; 70450-TC; 80048; 85025; 85610; 85651; 85730; 99284